=== PATIENT | female | born 1945 | race Caucasian/White ===

== ENCOUNTER 2017-01-09 11:38 | Emergency (ER) | payer MEDICARE ==
[2017-01-09 12:07] VITALS: BP 103/64
--- NOTE | 2017-01-09 12:23 | UC ---
Respiratory Complaint HPI - HPI Summary HPI Summary: patient has had 5 days of sinus congestion that has developed a cough. no fever , no dysphagia. - History of Current Complaint Chief Complaint: UCRespiratory Stated Complaint: RESP COMPLAINT Time Seen by Provider: 01/09/17 12:12 Hx Obtained From: Patient ?: No Onset/Duration: Sudden Onset, Lasting Days Timing: Constant Severity Initially: Mild Severity Currently: Moderate Character: Cough: Nonproductive Aggravating Factors: Exertion, Deep Breaths, Recumbent Position Alleviating Factors: Nothing Associated Signs And Symptoms: Positive: URI, Nasal Congestion, Sinus Discomfort - Allergies/Home Medications Allergies/Adverse Reactions: Allergies Allergy/AdvReac Type Severity Reaction Status Date / Time Peanut Oil Allergy Unknown Verified 01/09/17 12:02 Reaction Details Penicillins Allergy Rash Verified 01/09/17 12:02 PMH/Surg Hx/FS Hx/Imm Hx Previously Healthy: Yes Endocrine History Of: Reports: Thyroid Disease Denies: Diabetes Cardiovascular History Of: Reports: Cardiac Disorders - a fib 2008,2 ablasions Denies: Hypertension Respiratory History Of: Denies: COPD, Asthma GI/ History Of: Denies: Ulcer - Surgical History Surgical History: Yes Surgery Procedure, Year, and Place: partial hysterectomy - Family History Known Family History: Negative: Cardiac Disease, Hypertension - Social History Alcohol Use: Occasionally Substance Use Type: None Smoking Status (MU): Never Smoked Tobacco - Immunization History Most Recent Tetanus Shot: UNKNOWN Review of Systems Constitutional: Fatigue Skin: Negative Eyes: Negative ENT: Negative Respiratory: Cough Cardiovascular: Negative Gastrointestinal: Negative Genitourinary: Negative Motor: Negative Neurovascular: Negative Musculoskeletal: Negative Neurological: Negative Psychological: Negative All Other Systems Reviewed And Are Negative: Yes Physical Exam Triage Information Reviewed: Yes Appearance: Well-Nourished, Ill-Appearing, Pain Distress Vital Signs: Initial Vital Signs Temp 97.6 F 01/09/17 12:03 Pulse 72 01/09/17 12:03 Resp 18 01/09/17 12:03 BP 103/64 01/09/17 12:03 Pulse Ox 100 01/09/17 12:03 Vital Signs Reviewed: Yes Eye Exam: Normal Eyes: Positive: Conjunctiva Clear ENT: Positive: Pharyngeal erythema, Nasal congestion, TMs normal Dental Exam: Normal Neck exam: Normal Neck: Positive: Supple, Nontender, No Lymphadenopathy Respiratory Exam: Normal Respiratory: Positive: Chest non-tender, Lungs clear, Normal breath sounds, No accessory muscle use, Respiratory distress, Wheezing, Inspiration Cardiovascular Exam: Normal Cardiovascular: Positive: RRR, No Murmur, Pulses Normal Abdominal Exam: Normal Abdomen Description: Positive: Nontender, No Organomegaly, Soft Bowel Sounds: Positive: Present Musculoskeletal Exam: Normal Musculoskeletal: Positive: Strength Intact, ROM Intact, No Edema Neurological Exam: Normal Neurological: Positive: Alert, Muscle Tone Normal Psychological Exam: Normal Skin Exam: Normal UC Diagnostic Evaluation - Laboratory O2 Sat by Pulse Oximetry: 100 Respiratory Course/Dx - Course Course Of Treatment: hx obtained, exam performed, meds reveiwed, FLU obtained and is negative, prednisone prescribed for sinus congestion and bronchospasm - Differential Dx/Diagnosis Differential Diagnosis/HQI/PQRI: Aspiration, Asthma, Influenza, Laryngitis, Sinusitis Provider Diagnoses: bronchospasm,. sinus congestion Discharge - Discharge Plan Condition: Stable Disposition: HOME Patient Education Materials: Upper Respiratory Infection (ED) Referrals: Mic Gerardo MD [Primary Care Provider] -
== END 2017-01-09 13:14 | disposition home or self-care (01) ==
LOC: UCEAST 11:38
DX: J98.01 Acute bronchospasm (principal); R09.81 Nasal congestion; Z88.0 Allergy status to penicillin
CPT/HCPCS: 87502; 99212; G0463

== ENCOUNTER 2018-01-15 14:50 | Emergency (ER) | payer MEDICARE ==
[2018-01-15 15:02] VITALS: BP 112/65
[2018-01-15] MEDS ORDERED: Acetaminophen TAB* 325 MG PO ONE (15:51)
--- NOTE | 2018-01-15 16:32 | RAD ---
INDICATION: Cough and fever COMPARISON: Most recent comparison chest x-rays dated June 06, 2009 TECHNIQUE: PA and lateral views of the chest were obtained. FINDINGS: The heart and mediastinum are normal in size and contour. Similar to prior chest x-rays the lungs appear hyperaerated and there is a flattened diaphragm and increased retrosternal airspace consistent with chronic obstructive pulmonary disease. There is interval appearance of density at the right lung base obscuring the lateral left hemidiaphragm. On the lateral view this density is localized to the posterior right lung base. Visualized bones are normal for the patient's age. There is no radiographic evidence of free air beneath the diaphragm IMPRESSION: 1. INTERVAL DENSITY AT THE POSTERIOR LATERAL RIGHT LUNG BASE COULD REPRESENT PNEUMONIA IN THE CORRECT CLINICAL SETTING. A FOLLOW-UP CHEST X-RAY AFTER AN APPROPRIATE COURSE OF THERAPY IS ADVISED TO ASCERTAIN RESOLUTION. 2. AGAIN SEEN IS THE STIGMATA OF CHRONIC OBSTRUCTIVE PULMONARY DISEASE.
--- NOTE | 2018-01-15 16:35 | UC ---
Respiratory Complaint HPI - HPI Summary HPI Summary: Patient was in [place] last week and began feeling badly was seen by an urgent care up there and was started on Tamiflu presumptively for influenza no testing was done. She has been exposed to her son who does is positive for influenza. She was able to tolerate 3 doses of the Tamiflu but caused her to much nausea to continue. She began to feel better and then 2 days ago started feeling poorly again fevers and cough. Patient does live alone she reports having difficult time taking care of herself she's eating very poorly urinating less than usual - History of Current Complaint Chief Complaint: UCRespiratory Stated Complaint: COUGH,FEVER Time Seen by Provider: 01/15/18 15:19 Hx Obtained From: Patient ?: No Onset/Duration: Sudden Onset Timing: Constant Severity Initially: Mild Severity Currently: Moderate Pain Intensity: 2 Character: Cough: Nonproductive Aggravating Factors: Nothing Alleviating Factors: Nothing Associated Signs And Symptoms: Positive: Dyspnea, Fever, Chills, Pleuritic Chest Pain - Allergies/Home Medications Allergies/Adverse Reactions: Allergies Allergy/AdvReac Type Severity Reaction Status Date / Time peanut Allergy Anaphylatic Verified 01/15/18 15:02 Shock Penicillins Allergy Rash Verified 01/15/18 15:02 Home Medications: Home Medications Metoprolol Tartrate TAB* [Lopressor TAB*] 1 tab PO DAILY 01/15/18 [History Confirmed 01/15/18] Primidone 25 mg PO BID 01/15/18 [History Confirmed 01/15/18] PMH/Surg Hx/FS Hx/Imm Hx Previously Healthy: No Endocrine History: Hypothyroidism Cardiovascular History: Atrial Fibrillation - Surgical History Surgical History: Yes Surgery Procedure, Year, and Place: partial hysterectomy - Family History Known Family History: Negative: Cardiac Disease, Hypertension - Social History Occupation: Retired Lives: Alone Alcohol Use: Occasionally Substance Use Type: None Smoking Status (MU): Never Smoked Tobacco - Immunization History Most Recent Tetanus Shot: UNKNOWN Review of Systems Constitutional: Fever, Chills, Fatigue Skin: Negative Eyes: Negative ENT: Negative Respiratory: Shortness Of Breath, Cough Cardiovascular: Negative Gastrointestinal: Abdominal Pain, Nausea Genitourinary: Other - Decreased urine output Motor: Negative Neurovascular: Negative Musculoskeletal: Arthralgia, Myalgia Neurological: Headache Psychological: Negative Is Patient Immunocompromised?: Yes All Other Systems Reviewed And Are Negative: No Physical Exam Triage Information Reviewed: Yes Appearance: Well-Nourished, Ill-Appearing, Pain Distress Vital Signs: Initial Vital Signs Temp 102.9 F 01/15/18 14:58 Pulse 123 01/15/18 14:58 Resp 18 01/15/18 14:58 BP 112/65 01/15/18 14:58 Pulse Ox 95 01/15/18 14:58 Vital Signs Reviewed: Yes Eye Exam: Normal Eyes: Positive: Conjunctiva Clear ENT Exam: Normal ENT: Positive: Normal ENT inspection, Hearing grossly normal, Pharynx normal, Uvula midline. Negative: Nasal congestion, TMs normal, Trismus, Muffled voice, Hoarse voice Dental Exam: Normal Neck exam: Normal Respiratory: Positive: Chest non-tender, No respiratory distress, No accessory muscle use, Crackles - right base Cardiovascular Exam: Normal Cardiovascular: Positive: No Murmur, Pulses Normal, Brisk Capillary Refill, Tachycardia Musculoskeletal Exam: Normal Musculoskeletal: Positive: Strength Intact, ROM Intact, No Edema Neurological Exam: Normal Neurological: Positive: Alert, Muscle Tone Normal Psychological Exam: Normal Skin Exam: Normal UC Diagnostic Evaluation - Laboratory O2 Sat by Pulse Oximetry: 95 Diagnostic Studies Comment: Influenza B positive, influenza A negative - Radiology Xray Interpretation: Positive (See Comments) Radiology Interpretation Completed By: ED Physician - right lower lobe pneumonia , Radiologist Respiratory Course/Dx - Course Course Of Treatment: Patient continues to feel poorly 45 minutes after Tylenol temperatures up to 103.3. Oxygen saturations 95% on room air tachycardic 113- 120. Will transfer patient to the emergency department. O2 IV started normal saline is up and running - Differential Dx/Diagnosis Provider Diagnoses: Right lower lobe pneumonia, tachycardia - Physician Notification/Consults Discussed Patient Care With: Reji Steele Time Discussed With Above Provider: 16:40 Discharge - Sign-Out/Discharge Documenting (check all that apply): Discharge - Discharge Plan Condition: Guarded Disposition: [facility] CARE FAC Discharge Disposition Comment: [facility] emergency department by EMS Referrals: Mic Gerardo MD [Primary Care Provider] - - Billing Disposition and Condition Condition: GUARDED Disposition: [place]
[2018-01-15] MEDS ORDERED: NS 0.9% 1000 ML* 1,000 ML IV ONE (16:42)
== END 2018-01-15 17:01 | disposition short-term general hospital (02) ==
LOC: UCEAST 14:50
DX: J18.9 Pneumonia, unspecified organism (principal); R00.0 Tachycardia, unspecified; E03.9 Hypothyroidism, unspecified; I48.91 Unspecified atrial fibrillation; Z88.0 Allergy status to penicillin
CPT/HCPCS: 71046; 87502; 99213; A9270-GY; G0463

== ENCOUNTER 2018-01-15 17:25 | Emergency (ER) | payer MEDICARE ==
[2018-01-15] MEDS ORDERED: NS 0.9% 1000 ML*IV.FLUID IV ONE (17:42)
[2018-01-15] MEDS ORDERED: Azithromycin IV(*) 500 MG in NS 0.9% 250 ML* 250 ML IVPB ONE (17:43)
[2018-01-15] MEDS ORDERED: cefTRIAXone(*) 1 GM in NS 0.9% 50 ML* 50 ML IVPB ONE (17:43)
[2018-01-15 18:54] LABS: ABS Basophils 0 10^3/ul (0-0.2); ABS Eosinophils 0 10^3/ul (0-0.6); ABS Lymphocytes 0.5 10^3/ul (1.0-4.8); ABS Monocytes 0.8 10^3/ul (0-0.8); ABS Neutrophils 10.6 10^3/ul (1.5-7.7); ABS Nucleated RBC 0 10^3/ul; Eosinophil % 0 % (0-6); Hematocrit 32 % (35-47); Hemoglobin 10.7 g/dl (12.0-16.0); Lymphocyte % 3.9 % (25-47); Mean Corpuscular HGB Conc 34 g/dl (31-36); Mean Corpuscular Hemoglobin 30 pg (27-31); Mean Corpuscular Volume 89 fL (80-97); Mean Platelet Volume 8.4 um3 (7.4-10.4); Nucleated Red Blood Cells % 0; Platelet Count 349 10^3/ul (150-450); Red Blood Count 3.55 10^6/ul (4.0-5.4); Red Cell Distribution Width 13 % (10.5-15); White Blood Count 11.9 10^3/ul (3.5-10.8)
[2018-01-15 19:02] LABS: INR 0.98 (0.77-1.02)
[2018-01-15 19:10] LABS: EGFR Non-African American 82.7 (>60)
--- NOTE | 2018-01-15 19:32 | ED ---
HPI Cardiac - HPI Summary HPI Summary: Patient is a 9-year-old female who presents emergency department for further evaluation of pneumonia. Patient was seen at urgent care just prior to arrival where she had a chest x-ray performed which showed a right lower lobe infiltrate. Patient states she's been feeling sick for 2-3 weeks. She recently was visiting family in [place]. She states she's had a productive cough. She also notes that she's been feeling very weak with decreased appetite. She admits to occasional shortness of breath with coughing. She 1 episode of posttussive vomiting today. Otherwise denies chest pain, abdominal pain, diarrhea, urinary symptoms. Symptoms are moderate in severity. No significant past medical history. - History of Current Complaint Chief Complaint: EDFluSymptoms Stated Complaint: POSSIBLE FLU Time Seen by Provider: 01/15/18 17:41 Hx Obtained From: Patient Onset/Duration: Started Weeks Ago Timing: Constant Initial Severity: Moderate Current Severity: Moderate Pain Intensity: 0 Character: Cough, Productive Aggravating Factor(s): Exertion Alleviating Factor(s): Nothing Associated Signs and Symptoms: Positive: Weakness, Shortness of Breath, Fever, Chills, Cough, Productive Cough, Vomiting - Risk Factors Cardiac Risk Factors: Negative - Allergy/Home Medications Allergies/Adverse Reactions: Allergies Allergy/AdvReac Type Severity Reaction Status Date / Time peanut Allergy Anaphylatic Verified 01/15/18 15:02 Shock Penicillins Allergy Rash Verified 01/15/18 15:02 Home Medications: Home Medications Primidone TAB(*) [Mysoline TAB(*)] 25 mg PO BID 01/15/18 [History Confirmed ] PMH/Surg Hx/FS Hx/Imm Hx Previously Healthy: Yes Endocrine/Hematology History: Reports: Hx Thyroid Disease Denies: Hx Diabetes Cardiovascular History: Denies: Hx Hypertension Respiratory History: Denies: Hx Asthma, Hx Chronic Obstructive Pulmonary Disease (COPD) GI History: Denies: Hx Ulcer - Surgical History Surgery Procedure, Year, and Place: partial hysterectomy Infectious Disease History: Yes Infectious Disease History: Denies: Hx Clostridium Difficile, Hx Hepatitis, Hx Human Immunodeficiency Virus (HIV), Hx of Known/Suspected MRSA, Hx Shingles, Hx Tuberculosis, Hx Known/ Suspected VRE, Hx Known/Suspected VRSA, History Other Infectious Disease, Traveled Outside the [place] in Last 30 Days - Family History Known Family History: Negative: Cardiac Disease, Hypertension - Social History Occupation: Employed Part-time Lives: Alone Alcohol Use: Occasionally Substance Use Type: Reports: None Smoking Status (MU): Never Smoked Tobacco Review of Systems Positive: Fever, Chills Eyes: Negative ENT: Negative Negative: Palpitations, Chest Pain Positive: Shortness Of Breath, Cough Positive: Other. Negative: Abdominal Pain, Vomiting - One episode of posttussive vomiting , Diarrhea, Nausea Genitourinary: Negative Musculoskeletal: Negative Skin: Negative Neurological: Negative Positive: Weakness. Negative: Headache, Paresthesia, Numbness, Syncope, Slurred Speech Psychological: Normal All Other Systems Reviewed And Are Negative: Yes Physical Exam Triage Information Reviewed: Yes Vital Signs On Initial Exam: Initial Vitals Temp Pulse Resp BP Pulse Ox 100.7 F 95 16 98/51 95 01/15/18 17:38 01/15/18 17:38 01/15/18 17:38 01/15/18 17:38 01/15/18 17:38 Vital Signs Reviewed: Yes Appearance: Positive: Well-Appearing - Pt. sitting up in bed in NAD. Pleasant Skin: Positive: Warm, Dry Head/Face: Positive: Normal Head/Face Inspection Eyes: Positive: Normal ENT: Negative: Muffled voice, Hoarse voice Neck: Positive: Supple Respiratory/Lung Sounds: Positive: Clear to Auscultation, Other - Mild rhonchi to the right lower base, otherwise clear throughout. Cardiovascular: Positive: Normal, RRR Abdomen Description: Positive: Nontender, Soft Musculoskeletal: Positive: Normal Neurological: Positive: Normal, CN Intact II-III Psychiatric: Positive: Normal Diagnostics - Vital Signs Vital Signs Temp Pulse Resp BP Pulse Ox 01/15/18 17:38 100.7 F 95 16 98/51 95 - Laboratory Lab Results: Lab Results 01/15/18 01/15/18 01/15/18 Range/Units 18:45 18:45 18:45 WBC (3.5-10.8) 10^3/ul RBC (4.0-5.4) 10^6/ul Hgb (12.0-16.0) g/dl Hct (35-47) % MCV (80-97) fL MCH (27-31) pg MCHC (31-36) g/dl RDW (10.5-15) % Plt Count (150-450) 10^3/ul MPV (7.4-10.4) um3 Neut % (Auto) (38-83) % Lymph % (Auto) (25-47) % Kidder % (Auto) (0-7) % Eos % (Auto) (0-6) % Baso % (Auto) (0-2) % Absolute Neuts (auto) (1.5-7.7) 10^3/ul Absolute Lymphs (auto) (1.0-4.8) 10^3/ul Absolute Monos (auto) (0-0.8) 10^3/ul Absolute Eos (auto) (0-0.6) 10^3/ul Absolute Basos (auto) (0-0.2) 10^3/ul Absolute Nucleated RBC 10^3/ul Nucleated RBC % INR (Anticoag Therapy) 0.98 (0.77-1.02) APTT 29.9 (26.0-36.3) seconds Sodium 130 L (139-145) mmol/L Potassium 3.7 (3.5-5.0) mmol/L Chloride 98 L (101-111) mmol/L Carbon Dioxide 22 (22-32) mmol/L Anion Gap 10 (2-11) mmol/L BUN 14 (6-24) mg/dL Creatinine 0.70 (0.51-0.95) mg/dL Est GFR ( Amer) 106.4 (>60) Est GFR (Non-Af Amer) 82.7 (>60) BUN/Creatinine Ratio 20.0 (8-20) Glucose 113 H (70-100) mg/dL Lactic Acid (0.5-2.0) mmol/L Calcium 8.6 (8.6-10.3) mg/dL Total Bilirubin 0.70 (0.2-1.0) mg/dL AST 26 (13-39) U/L ALT 22 (7-52) U/L Alkaline Phosphatase 88 (34-104) U/L Troponin I 0.02 (<0.04) ng/mL C-Reactive Protein 172.99 H (< 5.00) mg/L B-Natriuretic Peptide 84 ( - 100) pg/mL Total Protein 6.9 (6.4-8.9) g/dL Albumin 3.7 (3.2-5.2) g/dL Globulin 3.2 (2-4) g/dL Albumin/Globulin Ratio 1.2 (1-3) Lipase 11 (11.0-82.0) U/L 01/15/18 01/15/18 Range/Units 18:45 18:45 WBC 11.9 H (3.5-10.8) 10^3/ul RBC 3.55 L (4.0-5.4) 10^6/ul Hgb 10.7 L (12.0-16.0) g/dl Hct 32 L (35-47) % MCV 89 (80-97) fL MCH 30 (27-31) pg MCHC 34 (31-36) g/dl RDW 13 (10.5-15) % Plt Count 349 (150-450) 10^3/ul MPV 8.4 (7.4-10.4) um3 Neut % (Auto) 88.9 H (38-83) % Lymph % (Auto) 3.9 L (25-47) % Kidder % (Auto) 7.1 H (0-7) % Eos % (Auto) 0 (0-6) % Baso % (Auto) 0.1 (0-2) % Absolute Neuts (auto) 10.6 H (1.5-7.7) 10^3/ul Absolute Lymphs (auto) 0.5 L (1.0-4.8) 10^3/ul Absolute Monos (auto) 0.8 (0-0.8) 10^3/ul Absolute Eos (auto) 0 (0-0.6) 10^3/ul Absolute Basos (auto) 0 (0-0.2) 10^3/ul Absolute Nucleated RBC 0 10^3/ul Nucleated RBC % 0 INR (Anticoag Therapy) (0.77-1.02) APTT (26.0-36.3) seconds Sodium (139-145) mmol/L Potassium (3.5-5.0) mmol/L Chloride (101-111) mmol/L Carbon Dioxide (22-32) mmol/L Anion Gap (2-11) mmol/L BUN (6-24) mg/dL Creatinine (0.51-0.95) mg/dL Est GFR ( Amer) (>60) Est GFR (Non-Af Amer) (>60) BUN/Creatinine Ratio (8-20) Glucose (70-100) mg/dL Lactic Acid 0.6 (0.5-2.0) mmol/L Calcium (8.6-10.3) mg/dL Total Bilirubin (0.2-1.0) mg/dL AST (13-39) U/L ALT (7-52) U/L Alkaline Phosphatase (34-104) U/L Troponin I (<0.04) ng/mL C-Reactive Protein (< 5.00) mg/L B-Natriuretic Peptide ( - 100) pg/mL Total Protein (6.4-8.9) g/dL Albumin (3.2-5.2) g/dL Globulin (2-4) g/dL Albumin/Globulin Ratio (1-3) Lipase (11.0-82.0) U/L Result Diagrams: 01/15/18 18:45 01/15/18 18:45 Lab Statement: Any lab studies that have been ordered have been reviewed, and results considered in the medical decision making process. Disposition - Course Course Of Treatment: Patient presenting to the emergency department with fever and infiltrate on chest x-ray. Temperature in the ER is 100.7 Fahrenheit, 95 bpm heart rate, respirations 16/m, blood pressure 98/51, oxygen saturation is 95 % on room air which is normal. Patient states her blood pressure is always low. She was started on IV fluids and given a dose of IV Rocephin and Zithromax. Blood work and EKG were ordered. Labs show a mild elevation in the WBC at 11.9. Labs are otherwise unremarkable. EKG done at 1827 shows a sinus rhythm of 85 bpm which, right axis deviation, no ST elevation or depression, or similar to prior tracing. Patient was ambulated around the department with pulse ox and oxygen stayed between 95% to 100%. Patient states she felt well and did not feel short of breath. Results were discussed with patient. Offered her admission but she wishes to go home tonight and try outpatient treatment which I think is reasonable at this time. Prescription for Levaquin and sent to pharmacy. Patient's son lives in town and is able to help her out at home. Advised her to call her family doctor on Wednesday for an appointment. To increase fluids and rest. Tylenol for fever as directed. To return to the ER if symptoms change or worsen. - Differential Dx - Cardiopulmonary Differential Diagnoses - Cardiopulmonary: Other - Pneumonia, sepsis, dehydration - Diagnoses Provider Diagnoses: Pneumonia Discharge - Sign-Out/Discharge Documenting (check all that apply): Discharge - Discharge Plan Condition: Good Disposition: HOME Prescriptions: Levofloxacin TAB* [Levaquin TAB*] 750 mg PO DAILY 5 Days #5 tab Patient Education Materials: Bacterial Pneumonia (ED) Referrals: Mic Gerardo MD [Primary Care Provider] - Additional Instructions: Call PCP on Wednesday for an appointment Take antibiotic as directed Tylenol for fever as directed Increase fluids Return to ER if symptoms change or worsen - Billing Disposition and Condition Condition: GOOD Disposition: HOME
[2018-01-15 20:00] LABS: Urine Appearance Cloudy; Urine Blood Negative (Negative); Urine Color Yellow; Urine Ketones 1+ (Negative); Urine Protein 1+(30 mg/dL) (Negative); Urine Specific Gravity 1.013 (1.010-1.030); Urine Urobilinogen Positive (Negative)
[2018-01-15 21:37] VITALS: BP 105/61
== END 2018-01-15 21:36 | disposition home or self-care (01) ==
LOC: ED 17:25
DX: J18.9 Pneumonia, unspecified organism (principal)
CPT/HCPCS: 36415; 80053; 81003; 81015; 83605; 83690; 83880; 84484; 85025; 85610; 85730; 86140; 87040; 87086; 93005; 96360; 96361; 99283; J0456; J0696

== ENCOUNTER 2018-09-17 19:27 | Inpatient (IN) | payer MEDICARE ==
--- OUTSIDE RECORDS SUMMARY | 2018-09-17 19:40 | XMS REPORT | Continuity of Care Document ---
:1945 External Reference #:[id number] Author Name Covert, Inocencia Care Team Providers Name Role Phone Mic Gerardo MD Primary Care Physician Unavailable Payers Type Date Identification Numbers Payment Provider Subscriber Effective: Policy Number: [id number] Medicare Blue Ppo Sheyla Rivera 2013 Group Number: [id number] [address] [address] PayID: [id number] GELA Lerner [id number] Effective: 2012 Policy Number: [id number] [facility] Ppo Sheyla Rivera Expires: 2013 PayID: [id number] [address] [address] GELA Jacobo [id number] Advance Directives Description No Information Available Problems Date Description Provider Status Onset: 08/29/2014 Coronary arteriosclerosis Kanika Camacho M.D. Active Onset: 08/29/2014 Paroxysmal supraventricular tachycardia Kanika Camacho M.D. Active Onset: 08/29/2014 Palpitations Kanika Camacho M.D. Active Family History Date Family Member(s) Problem(s) Comments Father due to Prostate Cancer () Mother due to Dementia () Siblings 3 2 brothers, 1 sister. older brother A-fib. 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 daily. Allergies, Adverse Reactions, Alerts Date Description Reaction Status Severity Comments 08/29/2014 Penicillin Active 08/24/2018 Levaquin Active insomnia, numbness fingertips/toes 08/24/2018 Peanut Allergenic Extract Active Medications Medication Date Status Form Strength Qnty SIG Indications Ordering Provider Withania Active calcium 60 Mejia Complex 2018 mg, MD Jennifer skullcap, licorice root, withania root, persian ginseng root, Levothyroxine 08/24/ Active Tablets 88mcg 30tabs 88mcg by E03.9 Mejia Sodium 2018 mouth MD Jennifer daily Probiotic / Active daily Unknown 0000 Aspirin / Active Tablets 81mg 90tabs 1 by mouth Unknown 0000 every day Zolpidem / Active Tablets 5mg 10tabs 1 tab at Unknown Tartrate 0000 bedtime as needed for sleep May 3 / Active Capsules 1000mg 100cap 2 cap po Unknown 0000 s daily Calcium / Active Tablets 1000/500 2 po qd Unknown Magnesium 0000 mg Co-Enzyme Q-10 / Active Capsules 100mg 1 by mouth Unknown 0000 d Calcium 600+D / Active Tablets 600-200mg- 1 by mouth Unknown 0000 Unit twice a day Ibuprofen / Active Tablets 200mg as needed Unknown 0000 Metoprolol / Active Tablets ER 25mg 1 by mouth Unknown Succinate ER 0000 24HR every day Primidone / Active Tablets 50mg take 1 Unknown 0000 tablet by mouth twice a day Vitamin D-400 / Active Tablets 400Unit 2 by mouth Unknown 0000 every day Cataplex Acp / Active Vitamin Unknown 0000 A,Vitamin C, calcium lactate and calcium acid phosphate Ferrofood / Active vitamin C, Unknown 0000 Vitamin B12, Iron, bovine liver and bone. Min-Vanegas / Active calcium Unknown 0000 1200 mg, Iodine 200 mcg, magnesium 19 mg, Antronex / Active calcium, Unknown 0000 bovine liver and fat, vitamin E Levothyroxine 08/24/ Hx Tablets 112mcg 1 by mouth Mejia Sodium 2017 - every day MD Jennifer 2017 Omeprazole / Hx Capsules 20mg 1 by mouth Unknown 0000 - DR every day 2013 Levothyroxine / Hx Tablets 50mcg 90tabs 1 by mouth Unknown Sodium 0000 - every day 2017 Coenzyme Q-10 / Hx Capsules 60mg 1 cap po Unknown 0000 - daily 2017 Vitamin D // Hx daily Unknown 2013 Calcium 600 / Hx daily Unknown 2013 Magnesium // Hx daily Unknown 2013 Silicon Dioxide // Hx Unknown 2013 Acerola C-500 / Hx Chewtabs 500mg 1 po qd Unknown 2017 Immunizations Description No Information Available Vital Signs Date Vital Result Comment 08/24/2018 11:49am Height 66.5 inches 5'6.50" Weight 119.00 lb w/o shoes Heart Rate 85 /min BP Systolic Sitting 97 mmHg BP Diastolic Sitting 56 mmHg BMI (Body Mass Index) 18.9 kg/m2 08/29/2014 7:52am Height 66.5 inches 5'6.50" Weight 130.00 lb Heart Rate 80 /min BP Systolic Sitting 98 mmHg LA reg cuff BP Diastolic Sitting 74 mmHg LA reg cuff BP Systolic Standing 94 mmHg LA BP Diastolic Standing 78 mmHg LA Respiratory Rate 16 /min BMI (Body Mass Index) 20.7 kg/m2 Results Description No Information Available Procedures Date Code Description Status 10/02/2014 96536 Stress Test Completed 09/18/2014 36567 Holter Monitoring 24 HR New Completed 08/29/2014 70212 EKG Tracing & Interpretation Completed 04/05/2013 76325 EKG Tracing & Interpretation Completed Encounters Type Date Location Provider Dx Diagnosis Office Visit 08/29/2014 [facility] Kanika Camacho M.D. 785.1 Palpitations 7:45a [place] 427.0 PSVT Paroxysmal Supraventricular Tachycardia 724.5 Backache Unspec 414.01 Coronary Atherosclerosis [place] 530.81 Esophageal Reflux Office Visit 04/05/2013 10:30a [facility] Kanika Camacho 785.1 Palpitations Of Aminah Jim[facility]nez 427.89 Cardiac Dysrhythmia Other Office Visit 10/07/2009 12:30a [facility] Cayla Benavides, 442.9 [facility],kendra Jiménez Unspec Site Hospitalists Plan of Treatment 08/24/2018 - Roberto Rodriguez MDE03.9 Hypothyroidism, unspecifiedNew Medication: Levothyroxine Sodium 88 mcg - 88mcg by mouth dailyNew Labs:TSH Thyroid Stimulating Horm, Ordered: 08/24/18T4 Free Thyroxine, Ordered: 08/24/18T3 Free, Ordered: 08/24/18Thyroid Peroxidase Antibody, Ordered: 08/24/18ollow up:6 monthsInstructions:1. Decreased levothyroxine to 88mcg once daily in the morning. 2. Return in 4 weeks to [place] for follow-up tests. 3. Stop using any biotin-containing product for 3 days before tests. 4. Your TSH goalis 1-4 on levothyroxine. 5. No need for ultrasound in the future.I48.0 Paroxysmal atrial fibrillation
[2018-09-17] MEDS ORDERED: NS 0.9% 1000 ML* 2,000 ML IV ONE (19:56)
--- NOTE | 2018-09-17 19:57 | ED ---
GI/ HPI - HPI Summary HPI Summary: The patient is a 72 y/o F presenting to [facility] accompanied by son with a chief complaint of soft melanotic stool starting three days ago after a few days of constipation. She noticed that she had been constipated at first, and then she began to have general lightheadedness and weakness three days ago. With these new symptoms, she also began to have frequent soft stool with melena but no bright red blood was present. Currently, her pain is rated 2/10 in severity. She additionally c/o some SOB with a feeling of shallowness of breath and nausea without vomiting. She denies abd pain, headaches, rhinorrhea, and cough. She also reports that she had fallen and hit her head, causing a bruise over her right eyebrow; she remembers feeling faint at this time, but isn't sure if she had LOC. She has had some prior GI issues before, but not ones similar to this. Her last colonoscopy was in 2009, which was normal. She also had just been at the [facility] recently, where it was found that her TSH levels were low, but they have since been corrected with Levothyroxine. She had bloodwork yesterday, where it was also found that her RBCs were low, but she was instructed to visit a aircraft line assembler for a Holter monitor because she has hx of Afib. - History of Current Complaint Chief Complaint: EDGIBleed Time Seen by Provider: 09/17/18 19:46 Stated Complaint: ABD PAIN Hx Obtained From: Patient Onset/Duration: Started Days Ago - three days, Still Present Timing: Lasting Days Severity: Moderate Current Severity: Moderate Pain Intensity: 2 Location of Pain: None Associated Signs and Symptoms: Positive: Weakness, Nausea, Bruising - over right eyebrow s/p fall, Lightheadedness, Melena, Other: - POSITIVE: shallowness of breathing/SOB; NEGATIVE: headache, rhinorrhea. Negative: Vomiting, Bright Red Blood w/Stool, Abdominal Pain, Cough Aggravating Factor(s): Nothing Alleviating Factor(s): Nothing - Allergy/Home Medications Allergies/Adverse Reactions: Allergies Allergy/AdvReac Type Severity Reaction Status Date / Time levofloxacin [From Levaquin] Allergy Hallucinati Verified 09/17/18 19:31 ons peanut Allergy Anaphylatic Verified 01/15/18 15:02 Shock Penicillins Allergy Rash Verified 01/15/18 15:02 PMH/Surg Hx/FS Hx/Imm Hx Endocrine/Hematology History: Reports: Hx Thyroid Disease Denies: Hx Diabetes Cardiovascular History: Denies: Hx Hypertension Respiratory History: Denies: Hx Asthma, Hx Chronic Obstructive Pulmonary Disease (COPD) GI History: Denies: Hx Ulcer - Surgical History Surgery Procedure, Year, and Place: partial hysterectomy Infectious Disease History: No Infectious Disease History: Denies: Hx Clostridium Difficile, Hx Hepatitis, Hx Human Immunodeficiency Virus (HIV), Hx of Known/Suspected MRSA, Hx Shingles, Hx Tuberculosis, Hx Known/ Suspected VRE, Hx Known/Suspected VRSA, History Other Infectious Disease, Traveled Outside the [place] in Last 30 Days - Family History Known Family History: Negative: Cardiac Disease, Hypertension - Social History Alcohol Use: Occasionally Substance Use Type: Reports: None Smoking Status (MU): Never Smoked Tobacco Review of Systems Negative: Nasal Discharge Positive: Other - racing pulse Positive: Shortness Of Breath - shallow breathing. Negative: Cough Positive: Nausea, Other - POSITIVE: constipation, soft melanic stool; NEGATIVE: bright red blood in stool. Negative: Abdominal Pain, Vomiting Neurological: Other - lightheaded, weakness, possible LOC Negative: Headache All Other Systems Reviewed And Are Negative: Yes Physical Exam - Summary Physical Exam Summary: Appearance: Well-appearing, Well-nourished, lying in bed comfortably Skin: Warm, dry, no obvious rash Eyes: sclera anicteric, mild conjunctival pallor ENT: mucous membranes moist, pharynx appears normal Neck: Supple, nontender Respiratory: Clear to auscultation, no signs of respiratory distress Cardiovascular: Normal S1, S2 but mild tachycardia with range of 100-110 BPM. No murmurs. Normal distal pulses in tibial and radial bilaterally. Abdomen: Soft, nontender, normal active bowel sounds present Rectal Exam: no external hemorrhoids noted, stool is melanotic, guaiac is positive Musculoskeletal: Normal, Strength/ROM Intact Neurological: A&Ox3, awake and alert, mentation is normal, speech is fluent and appropriate, GCS: 15 Psychiatric: affect is normal, does not appear anxious or depressed Triage Information Reviewed: Yes Vital Signs On Initial Exam: Initial Vitals Temp Pulse Resp BP Pulse Ox 98.2 F 109 18 151/64 100 09/17/18 19:29 09/17/18 19:29 09/17/18 19:29 09/17/18 19:29 09/17/18 19:29 Vital Signs Reviewed: Yes - Ne Coma Scale Best Eye Response: 4 - Spontaneous Best Motor Response: 6 - Obeys Commands Best Verbal Response: 5 - Oriented Coma Scale Total: 15 Diagnostics - Vital Signs Vital Signs Temp Pulse Resp BP Pulse Ox 09/17/18 19:29 98.2 F 109 18 151/64 100 - Laboratory Result Diagrams: 09/18/18 01:56 09/17/18 20:02 Lab Statement: Any lab studies that have been ordered have been reviewed, and results considered in the medical decision making process. - CT Brain CT CT Interpretation Completed By: Radiologist Summary of CT Findings: No acute intracranial pathology. ED physician has reviewed this report. - EKG 20:46 Cardiac Rate: NL EKG Rhythm: Sinus Rhythm - 88 BPM Summary of EKG Findings: Right axis deviation. No ST elevations. Re-Evaluation - Re-Evaluation First Eval Re-Evaluation Time: 20:30 Change: Unchanged Comment: I spoke with the patient about admission to [facility] based on labwork. GIGU Course/Dx - Course Course Of Treatment: The patient is a 72 y/o F with a chief complaint of a few days of constipation, followed by lightheadedness and weakness starting three days ago, and she has noticed her stool is softer and melanotic and more frequent for the last three days as well. She additionally c/o some SOB with a feeling of shallowness of breath and nausea without vomiting. She denies abd pain, headaches, rhinorrhea, and cough. She also had fallen and hit her head, leaving a bruise above her right eyebrow. She has hx of GI issues but has never had this before. Recent bloodwork yesterday showed decreased RBCs. She has hx of decreased TSH that is treated with Levothyroxine, and intermittent Afib. Upon physical exam, the patient has mild conjunctival pallor and tachycardia, and rectal exam revealed melanotic stool and positive guaiac. In the ED course, the patient was given Ns, Tylenol, Zofran, and Pantoprazole Sodium. Bloodwork reveals decreases Hgb, Hct, and RBCs. EKG shows right axis deviation. Brain CT is negative. She is diagnosed with upper GI bleeding. I consulted with Dr. Espinoza, hospitalist, at 20:45, who accepts the patient for admission for further care. Patient agrees with this plan and understands the need for admission for further care. - Diagnoses Provider Diagnoses: Upper GI bleeding - Physician Notifications Discussed Care Of Patient With: Trent Espinoza - hospitalist Time Discussed With Above Provider: 20:45 Instructed by Provider To: Admit As Observation Admit/Transition Orders Completed By ED Provider: Yes - Critical Care Time Critical Care Time: 30-74 min - 72 -year-old woman with acute upper GI bleeding complicated by tachycardia and syncope. This is associated with marked anemia requiring transfusion and admission. Discharge - Sign-Out/Discharge Documenting (check all that apply): Patient Departure - Patient will be admitted to [facility] for further care by Dr. Espinoza. - Discharge Plan Condition: Guarded Disposition: ADMITTED TO [facility] - Billing Disposition and Condition Condition: GUARDED Disposition: Admitted to [facility] - Attestation Statements Document Initiated by Benjamin: Yes Documenting Scribe: Inocecnia Latham Provider For Whom Benjamin is Documenting (Include Credential): Dr. Maximiliano Wood MD Scribe Attestation: Inocencia Jones scribed for Dr. Maximiliano Wood MD on 09/18/18 at 0644. Scribe Documentation Reviewed: Yes Provider Attestation: The documentation as recorded by the Inocencia perkins accurately reflects the service I personally performed and the decisions made by me, Dr. Maximiliano Wood MD Status of Scribe Document: Viewed
[2018-09-17 20:09] LABS: ABS Basophils 0.1 10^3/ul (0-0.2); ABS Eosinophils 0 10^3/ul (0-0.6); ABS Lymphocytes 1.9 10^3/ul (1.0-4.8); ABS Monocytes 0.5 10^3/ul (0-0.8); ABS Neutrophils 2.7 10^3/ul (1.5-7.7); ABS Nucleated RBC 0 10^3/ul; Eosinophil % 0.5 %; Hematocrit 22 % (35-47); Hemoglobin 7.8 g/dl (12.0-16.0); Lymphocyte % 36.5 %; Mean Corpuscular HGB Conc 35 g/dl (31-36); Mean Corpuscular Hemoglobin 32 pg (27-31); Mean Corpuscular Volume 92 fL (80-97); Mean Platelet Volume 7.6 fL (7.4-10.4); Nucleated Red Blood Cells % 0; Platelet Count 283 10^3/ul (150-450); Red Blood Count 2.43 10^6/ul (4.00-5.40); Red Cell Distribution Width 13 % (10.5-15); White Blood Count 5.2 10^3/ul (3.5-10.8)
[2018-09-17 20:17] LABS: INR 0.82 (0.77-1.02)
[2018-09-17] MEDS ORDERED: Pantoprazole IV* 40 MG IV ONE (21:03)
[2018-09-17] MEDS ORDERED: Ondansetron INJ* 2 MG/ML VIAL IV PRN (21:03)
[2018-09-17] MEDS ORDERED: Acetaminophen TAB* 325 MG PO PRN (21:03)
[2018-09-17] MEDS ORDERED: Naloxone Nasal Spray* 4 MG/0.1 ML NASAL.SPR INTRANASAL ONE (22:06)
[2018-09-17] MEDS ORDERED: Naloxone* 0.4 MG/ML 1 ML VIAL ONE (22:06)
[2018-09-17] MEDS: Pantoprazole* 80 mg IN NS 80 MG/250 ML BAG IVPB SCH (23:27)
--- NOTE | 2018-09-18 00:14 | HP ---
CC: Dr. Mic Gerardo; Dr. Lazar * HISTORY AND PHYSICAL: DATE OF ADMISSION: 09/17/18 PRIMARY CARE PROVIDER: Dr. Mic Gerardo. CONSULTING BAFFLE MOUNTER: Dr. Lazar. ATTENDING PHYSICIAN WHILE IN THE HOSPITAL: Dr. Medrano * (report dictated by Trent Espinoza NP). CHIEF COMPLAINT: 1. Weakness. 2. Black stool. HISTORY OF PRESENTING ILLNESS: Mrs. Rivera is a 72-year-old female patient; she carries a history of AFib status post ablation, now in sinus rhythm. She also has a history of hypothyroidism, GERD, and a history of SVT. She is coming into the ED today stating that since Wednesday, she has been feeling faint. She has noted that over the last week, she has had progressive worsening weakness. She said that she has been noticing when she stands up she has more faint. She has been feeling short of breath with some exertion at times, no chest pressure, and she notes that when she stands up or move that her heart rate is beating fast. She did admit to having some tarry type black-appearing stools, last one was this morning. She denied taking any NSAIDs and denied heavy alcohol consumption. She denies having any abdominal discomfort. She did admit to some nausea but no vomiting, no dysuria. She has not had any fevers. She was concerned and actually went to her primary this week and they checked her H and H. She said her RBCs were down a little bit and the plan was to have it checked again on Wednesday. Unfortunately though, the patient still just was not feeling well, she was concerned that she may be continuing to bleed because she had a black stool this morning. She came into the ER today because of the fact that she was just feeling more and more weak. She was evaluated. She was heme-positive by Dr. Wood developed the Hemoccult and was heme-positive, see his note and H and H was down to 7.8, last hemoglobin was 10.7. So because of these issues, there was concern for GI bleed, and we were asked to evaluate for admission. PAST MEDICAL HISTORY: Significant for; 1. Atrial fibrillation. 2. SVT. 3. Hypothyroidism. 4. GERD. PAST SURGICAL HISTORY: 1. She has had an ablation. 2. Hysterectomy. HOME MEDICATIONS: According to her include: 1. Aspirin 81 mg daily. 2. Synthroid 88 mcg p.o. daily. ALLERGIES TO MEDICATIONS: Include LEVAQUIN, PENICILLIN, and PEANUTS. FAMILY HISTORY: She said her mother of old age. Father had a history of prostate cancer. SOCIAL HISTORY: She does not smoke. She occasionally drinks wine. Surrogate decision maker is her son, Sung. REVIEW OF SYSTEMS: There is no documented fever. She is denying having any significant weight change. There was no double vision. She denied having any ear discharge. There is no rhinorrhea. There was no sore throat. No thyroid enlargement. Denied any chest pain. There is no orthopnea. There is dyspnea on exertion. There are palpitations with position change. There is no dysuria. No frequency. No seizure. There was no loss of consciousness. No pruritus and no skin ulcerations. Review of 14 systems completed, all others negative. PHYSICAL EXAMINATION GENERAL: At this time, Mrs. Rivera is a 72-year-old female patient; she is sitting in the ED stretcher. She does not appear to be in any acute distress. She appears to be well nourished, she appears to be well developed. VITAL SIGNS: Blood pressure 151/64 with a pulse of 109, respirations 18, O2 sat of 100%, temperature 98.2. HEENT: Head is atraumatic and normocephalic. Eyes: EOMs are intact. Sclerae are anicteric and not pale. Throat: Oral mucosa appears to be moist. No oropharyngeal erythema. NECK: Supple. LUNGS: Clear to auscultation. No wheezes, rales, or rhonchi. HEART: Sounds S1, S2. She had a regular rate and rhythm. No murmurs, rubs, or gallops. ABDOMEN: Soft, it was flat. There was tenderness in the epigastric area. EXTREMITIES: Pulses were 2+ throughout. She is moving all 4 extremities with 5 /5 strength. NEUROLOGICAL: The patient is awake, she is alert, she is oriented x3. Tongue is midline. Insurance Investigator were equal. No gross focal deficits. SKIN: Intact. LABORATORY DATA/DIAGNOSTIC STUDIES: Today, WBC of 5.2, RBC of 2.43, hemoglobin 7.8, hematocrit of 22, platelet count of 283. INR 0.82, PTT of 27.1. Sodium 136, potassium 3.9, chloride of 103, bicarb 25, BUN 17, creatinine of 0.83, glucose 98, calcium 9.0. Total bili 0.3, AST 26, ALT 23, alk phos 59, albumin 4.1. Again, Hemoccult was positive developed by Dr. Wood in ED, see his note. The EKG today shows a normal sinus rhythm with a rate of 88. She does have PAC , but no ST elevation, and was noted a T-wave inversion. When reviewed to the previous EKG, it appears to be similar. Old medical records were reviewed. ASSESSMENT AND PLAN: Mrs. Rivera is a 72-year-old female patient coming into the emergency department today with complaints of weakness, dyspnea on exertion , palpitations worse with position change, found to have a heme-positive Hemoccult, and also complains of tarry stools. She will be admitted under inpatient status for: 1. Presumed upper gastrointestinal bleed. I did touch base with Dr. Lazar. The plan will be to place the patient on clear liquid diet. PPI drip has been ordered. Two IVs have been placed by nursing staff already. We are going to give 1 unit of blood. We will check serial H and H's and we will continue to monitor her. 2. History of atrial fibrillation. Because of the gastrointestinal bleed, she could go into atrial fibrillation. I am going to put her on telemetry to monitor her closely. We will just continue to follow. 3. History of supraventricular tachycardia. Again, monitor on telemetry. 4. Hypothyroidism. Continue Synthroid. 5. Gastroesophageal reflux disease. She will be on a PPI drip. 6. DVT prophylaxis. She will be placed on SCDs because of the concern of active bleed. 7. Code status. Full code. 8. Fluids, electrolytes, nutrition. Clear liquid diet. TIME SPENT: On admission was 60 minutes; greater than half the time was spent face- to-face with the patient obtaining my history and physical, other half the time was spent going over the plan of care with the patient and implementing plan of care. I did discuss the plan of care with my attending, Dr. Medrano; he is in agreement. TRENT ESPINOZA NP [id number]/[facility] #: [id number] ANUJ
[2018-09-18 02:20] LABS: Hematocrit 23 % (35-47)
[2018-09-18] MEDS: Levothyroxine TAB* 88 MCG TAB PO SCH (05:24)
[2018-09-18 06:45] LABS: ABS Basophils 0 10^3/ul (0-0.2); ABS Eosinophils 0 10^3/ul (0-0.6); ABS Lymphocytes 1.8 10^3/ul (1.0-4.8); ABS Monocytes 0.4 10^3/ul (0-0.8); ABS Neutrophils 2.3 10^3/ul (1.5-7.7); ABS Nucleated RBC 0 10^3/ul; Hematocrit 25 % (35-47); Hemoglobin 8.4 g/dl (12.0-16.0); Mean Corpuscular HGB Conc 34 g/dl (31-36); Mean Corpuscular Hemoglobin 31 pg (27-31); Mean Corpuscular Volume 90 fL (80-97); Nucleated Red Blood Cells % 0.1; Platelet Count 242 10^3/ul (150-450); Red Blood Count 2.71 10^6/ul (4.00-5.40); Red Cell Distribution Width 13 % (10.5-15); White Blood Count 4.5 10^3/ul (3.5-10.8)
[2018-09-18 06:57] LABS: EGFR Non-African American 91.7 (>60)
[2018-09-18 07:03] LABS: INR 0.85 (0.77-1.02)
[2018-09-18] MEDS: Pantoprazole* 80 mg IN NS 80 MG/250 ML BAG IVPB SCH ×2 (09:36→19:38)
[2018-09-18] MEDS ORDERED: Midazolam* 1 MG/ML 10 ML VIAL (10 MG) ONE (11:46)
[2018-09-18] MEDS ORDERED: fentaNYL* 50 MCG/ML 2 ML VIAL (100 MCG VIAL) ONE (11:46)
[2018-09-18 14:22] LABS: Hematocrit 24 % (35-47); Hemoglobin 8.3 g/dl (12.0-16.0)
--- NOTE | 2018-09-18 14:55 | PN ---
Subjective Date of Service: 09/18/18 Interval History: Reports no pain.Had dark tarry stools prior to admission.Recd 1 unit PRBC overnight Objective Active Medications: Acetaminophen (Tylenol Tab*) 650 mg PO Q4H PRN PRN Reason: FEVER/PAIN Pantoprazole Sodium (Protonix Iv Bag*) 80 mg in 250 mls @ 25 mls/hr IVPB Q10H [facility] Last Admin: 09/18/18 09:36 Dose: 25 mls/hr Levothyroxine Sodium (Synthroid Tab*) 88 mcg PO DAILY@0600 [facility] Last Admin: 09/18/18 05:24 Dose: 88 mcg Ondansetron HCl (Zofran Inj*) 4 mg IV Q6H PRN PRN Reason: NAUSEA Vital Signs - 8 hr 09/18/18 07:42 Temperature 98.4 F Pulse Rate 70 Respiratory 14 Rate Blood Pressure 108/57 (mmHg) O2 Sat by Pulse 99 Oximetry Oxygen Devices in Use Now: None Eyes: No Scleral Icterus Ears/Nose/Mouth/Throat: NL Teeth, Lips, Gums Neck: NL Appearance and Movements; NL JVP Respiratory: Symmetrical Chest Expansion and Respiratory Effort, Clear to Auscultation Cardiovascular: NL Sounds; No Murmurs; No JVD Abdominal: NL Sounds; No Tenderness; No Distention Extremities: No Edema Skin: No Rash or Ulcers Neurological: Alert and Oriented x 3 Result Diagrams: 09/18/18 14:15 09/18/18 06:29 Assess/Plan/Problems-Billing Assessment: 72 y/o female with dark tarry stools being eval for Upper GI bleed - Patient Problems (1) GI bleed Current Visit: Yes Status: Acute Code(s): K92.2 - GASTROINTESTINAL HEMORRHAGE, UNSPECIFIED SNOMED Code(s): 31676571 Comment: Recd 1 unit PRBC last night H/H stable.Trending Admit team d/w Dr Lazar Plan for EGD today Continue PPI drip Clear liquid diet
--- NOTE | 2018-09-18 19:52 | CONS ---
GASTROENTEROLOGY CONSULT: DATE: 09/18/18 CONSULTING PHYSICIANS: Dr. Mic Gerardo and Trent Espinoza, ANDRSE. REASON FOR CONSULTATION: Melena with hemoglobin 10.8, BUN 17, creatinine 0.83 with heme-positive stool on digital rectal. 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 She describes them as "non-stop." She felt weak and her pulse was strong and she was faint and did fall down, though did not think she lost consciousness. She lives alone and did not take any action other than take an appointment with her primary office. She had no stools on 09/15/18, and at her appointment on 09/16/18, blood was taken and a Holter monitor arranged. She was not sleeping well at all , got progressively more weak and decided to come to the emergency room. She was told that she was quite anemic. She is generally in good health taking a baby aspirin after a cardiac ablation in 2008. Prior to that she had been on an unrecalled blood thinner. There has been no sign of atrial fibrillation since then. She does not take any other NSAIDs and with a friend in the room. No other use of ibuprofen, Motrin, Aleve , etc was revealed. She did have some acid indigestion a few years ago and recalls taking Prilosec for less than a month. She was just disinterested in something that was not natural. She had an upper endoscopy possibly at that time or possibly a few years before that and does not recall the results specifically other than nothing was impressive. Her bowel habit generally is regular, although in the last couple of months she has noted skipping upwards of 2 or 3 days and then a compensatory loose clean- out. She takes many supplements for digestive issues and offers up irritable bowel syndrome as the condition. PAST MEDICAL HISTORY: 1. Partial hysterectomy in 1985. 2. History of GERD - see above. 3. Irritable bowel syndrome. 4. Anemia - hemoglobin 10.7, MCV 89 in January 2018. She denies ever being put on iron. 5. Atrial fibrillation - not active since her ablation. MEDICATIONS: As an outpatient aspirin 81, Synthroid 88 - recent consultation with Dr. Roberto Rodriguez. ALLERGIES: PENICILLIN, LEVAQUIN and PEANUTS. FAMILY HISTORY: She says her mother of old age. She had a gastrointestinal problem, but the patient does not know besides it what it was. Father of prostate cancer. SOCIAL HISTORY: She lives alone. She drinks some wine, but not to excess. Her son is a nurse on the psychiatry floor since 2013. Her daughter is a delinquency prevention social worker at the [employer] in [place]. REVIEW OF SYSTEMS: No history of hematemesis. Current active indigestion, jaundice, weight loss, palpitations, hemoptysis, hematuria, flank pain, recent fracture and rash. PHYSICAL EXAM: She is a very slender older woman in no distress at this time. HEENT exam is unremarkable. She has no scleral icterus. She has no adenopathy or bruits. Her lungs are clear. Heart sounds are regular. Breasts and pelvic exams are deferred. The abdomen is symmetric, scaphoid without any tenderness. Rectal done in the ER. Extremities show no edema or deformity. Neurologic: Nonfocal with normal cranial nerves, mentation, and symmetric movements and strength. IMPRESSION AND PLAN: This 72-year-old woman with a background history of fairly mild sounding peptic complaints complaints that are most likely reflux in origin, currently had an event compatible with an upper gastrointestinal bleed with 2 hours of fairly torrential melena. Her baseline anemia exacerbated. She takes a baby aspirin and as there is no absolute risk for a dose of that, a small ulcer is most likely cause for this bleed. Upper endoscopy will be arranged. The balance between her residual cardiovascular risk (after ablation) a few years ago and the need to minimize the risk of aspirin will be determined a few months from now. If an ulcer is found, she will need a followup EGD. [id number]/[facility] #: [id number] [facility]
--- NOTE | 2018-09-18 22:54 | PRO ---
DATE: 09/18/18 - ROOM #420 REFERRING PROVIDERS: Dr. Mic Gerardo; Trent Espinoza NP * PROCEDURE: Upper gastrointestinal endoscopy and biopsy of gastric ulcer x4 and CLOtest. INDICATION: A 72-year-old woman presented feeling weak with a history of melena that had actually stopped before admission. She was transfused 1 unit, placed on a PPI drip. See separate consultation. ENDOSCOPIST: Dr. Lazar. MEDICATIONS: Midazolam 8, fentanyl 50. FINDINGS: She is a slender, healthy-appearing older woman in no overt distress. Cardiopulmonary exam was unremarkable. She was positioned left side down and moderate sedation induced with sequential doses of medication with the exam tolerated well. EGD: Larynx - symmetric limited views. Esophagus - easily entered. The mucosa is normal in the upper, mid, and lower esophagus with the EG junction at 41, a little bit loose, though there are no erosions or chronic changes whatsoever. She has not been on acid blockade in several years. Stomach - generally normal, empty, with no blood seen. There is a lesser curvature ulcer seen sliding by and with full distention and partial tip retroflexion, it can be viewed and is clean based, 1 cm, and without any associated mass or infiltration of the adjoining lesser curvature mucosa. It does appear benign and discretely punched out with no clots or stigmata. Therefore, biopsies were taken around the periphery x4 and a CLOtest also taken separately, greater curvature. The antrum appeared entirely benign. Duodenum - the pylorus, bulb, and second through fourth portions appear normal with symmetric small papilla well seen. During withdrawal, there were no additional findings and the EG junction appeared quite snug and normal at 41. IMPRESSION: 1. Gastric ulcer, lesser curvature, without active bleeding - given the profuseness of the bleeding, would continue with a PPI drip another day and then switch to twice a day. A repeat endoscopy in 6 to 8 weeks would appear indicated. She should remain off aspirin. 2. Anemia - she had hemoglobin 10.7, MCV 89 on 01/15/18. B12 level has not been done. Her creatinine is 0.64. LFTs normal. [id number]/[facility] #: [id number] [facility]
[2018-09-19] MEDS: Pantoprazole* 80 mg IN NS 80 MG/250 ML BAG IVPB SCH ×2 (01:01→11:20)
[2018-09-19] MEDS: Levothyroxine TAB* 88 MCG TAB PO SCH (05:38)
[2018-09-19 06:06] LABS: ABS Basophils 0 10^3/ul (0-0.2); ABS Eosinophils 0.1 10^3/ul (0-0.6); ABS Lymphocytes 1.1 10^3/ul (1.0-4.8); ABS Monocytes 0.3 10^3/ul (0-0.8); ABS Neutrophils 2.6 10^3/ul (1.5-7.7); ABS Nucleated RBC 0 10^3/ul; Eosinophil % 1.5 %; Hematocrit 26 % (35-47); Hemoglobin 9.1 g/dl (12.0-16.0); Lymphocyte % 27.4 %; Mean Corpuscular HGB Conc 35 g/dl (31-36); Mean Corpuscular Hemoglobin 32 pg (27-31); Mean Corpuscular Volume 92 fL (80-97); Mean Platelet Volume 7.9 fL (7.4-10.4); Nucleated Red Blood Cells % 0; Platelet Count 275 10^3/ul (150-450); Red Blood Count 2.87 10^6/ul (4.00-5.40); Red Cell Distribution Width 13 % (10.5-15); White Blood Count 4.1 10^3/ul (3.5-10.8)
[2018-09-19 06:36] LABS: EGFR Non-African American 77.6 (>60)
--- NOTE | 2018-09-19 15:19 | DS ---
CC: Dr. Gerardo; Dr. Lazar * DATE OF ADMISSION: 09/17/2018. DATE OF DISCHARGE: 09/19/2018. PRINCIPAL DISCHARGE DIAGNOSES: 1. Upper GI bleed secondary to a gastric ulcer. 2. Acute blood loss anemia. SECONDARY DISCHARGE DIAGNOSES: 1. History of atrial fibrillation, status post ablation. 2. Hypothyroidism. 3. GERD. MEDICATIONS AT THE TIME OF DISCHARGE: 1. Levothyroxine 88 mcg daily. 2. Pantoprazole 40 mg b.i.d. for 6 to 8 weeks pending GI follow-up. PHYSICAL EXAMINATION AT DISCHARGE: General: Alert, well-appearing female, walking around the hallways. Vital Signs: Temperature 98.0 degrees, heart rate 78, respiratory rate 14, pulse ox 96 percent on room air, blood pressure 125/64. HEENT: No conjunctival pallor is noted. Oral mucosa is moist. Neck: No JVP. Chest: Regular rhythm. No murmurs. Abdomen: Soft, nontender, nondistended. No guarding or rebound. Extremities: No ulcers, no rashes, no edema. HOSPITAL COURSE BY PROBLEM: 1. Upper GI bleed secondary to a gastric ulcer: She presented with melena and GI was consulted and recommended a PPI drip which she was continued on until she underwent an EGD on 09/19/2018. An EGD was performed by Dr. Lazar and showed a single, clean-based gastric ulcer with no visible vessels or active bleeding. Dr. Lazar recommended b.i.d. PPI for six to eight weeks. Follow-up with GI for a repeat endoscopy and discontinuation of her aspirin. Of note, her aspirin was continued after she had an ablation for A-fib several years ago , so it was deemed that the risk of an aspirin outweighed the benefit at this point as she has been in normal sinus rhythm as far as she knows and while she was here. She is to follow- up with GI and she chooses to follow-up with [facility]. She will need a repeat endoscopy. She understands that she is to complete a six to eight week course of Protonix and her CLOtest is negative. 2. Acute blood loss anemia: The rebecca of her hemoglobin was 7.8. She did receive one unit of packed red blood cells while she was here given an ongoing and active bleed and concern for ongoing blood loss. Her hemoglobin at the time of discharge is 9.1, her MCV is 92. She was encouraged to take a multivitamin with iron and folate should she feel comfortable and she was going to look for an all natural option. 3. History of A-fib, status post ablation: Again her aspirin was held and she will continue to hold it until a repeat endoscopy is performed. 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 DISPOSITION: Ms. Rivera is being discharged to home on 09/19/2018 in fair condition. She is to follow-up with GI and Cardiology, and return to the emergency department should she become lightheaded, dizzy, or have worsening melena or hematochezia. She understands that melena may continue for several days and not to be alarmed by this as old blood may still be passing. [id number]/[facility] #: [id number] [facility]
[2018-09-19 17:33] VITALS: BP 125/64
== END 2018-09-19 13:15 | disposition home or self-care (01) | DRG 378 ==
LOC: ED 19:27 → MED 20:53
PROVIDERS: ADMIT Internal Medicine; ATTEND Internal Medicine
PROC: 30233N1 Transfusion of Nonautologous Red Blood Cells into Peripheral Vein, Percutaneous Approach (ICD-10-PCS; 2018-09-17)
PROC: 0DD68ZX Extraction of Stomach, Via Natural or Artificial Opening Endoscopic, Diagnostic (ICD-10-PCS; principal; 2018-09-18)
DX: K25.4 Chronic or unspecified gastric ulcer with hemorrhage (principal); D62 Acute posthemorrhagic anemia; I48.91 Unspecified atrial fibrillation; E03.9 Hypothyroidism, unspecified; K21.9 Gastro-esophageal reflux disease without esophagitis; K58.9 Irritable bowel syndrome, unspecified; Z79.82 Long term (current) use of aspirin; Z79.899 Other long term (current) drug therapy; Z88.0 Allergy status to penicillin; Z88.1 Allergy status to other antibiotic agents; Z91.010 Allergy to peanuts; Z80.42 Family history of malignant neoplasm of prostate
CPT/HCPCS: 36415; 70450; 80048; 80053; 82607; 85014; 85018; 85025; 85610; 85730; 86850; 86900; 86901; 86922; 87077; 88305; 88342; 93005; 99156; 99157; 99284; A9270-GY; J2250; J2310; J3010; P9040

== ENCOUNTER 2019-03-27 17:10 | Emergency (ER) | payer MEDICARE ==
[2019-03-27 17:22] VITALS: BP 121/72
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
[2019-03-27] MEDS ORDERED: Acetaminophen TAB* 325 MG PO ONE (17:40)
== END 2019-03-27 18:23 | disposition home or self-care (01) ==
LOC: UCEAST 17:10
DX: R07.81 Pleurodynia (principal); S20.20XA Contusion of thorax, unspecified, initial encounter; V94.0XXA Hitting object or bottom of body of water due to fall from watercraft, initial encounter; Y92.828 Other wilderness area as the place of occurrence of the external cause
CPT/HCPCS: 99211; A9270-GY; G0463